=== PATIENT | female | born 1985 | race Caucasian/White ===

== ENCOUNTER 2018-02-04 19:46 | Emergency (ER) | payer OTHER ==
[2018-02-04 21:21] VITALS: BP 148/72; PULSE 120; RESP 18; TEMP 98.2
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
[2018-02-04] MEDS ORDERED: Acetaminophen-Codeine 300-30mg TAB PO STA (21:32)
== END 2018-02-04 22:08 | disposition home or self-care (01) ==
LOC: EC 19:46
DX: S02.5XXA Fracture of tooth (traumatic), initial encounter for closed fracture (principal); R00.0 Tachycardia, unspecified; F17.200 Nicotine dependence, unspecified, uncomplicated; Z86.14 Personal history of Methicillin resistant Staphylococcus aureus infection; Z91.048 Other nonmedicinal substance allergy status; V89.2XXA Person injured in unspecified motor-vehicle accident, traffic, initial encounter
CPT/HCPCS: 93005; 99283

== ENCOUNTER 2018-02-15 22:45 | Emergency (ER) | payer OTHER ==
[2018-02-15 22:53] VITALS: RESP 18
[2018-02-15 23:26] LABS: Appearance,Urine Cloudy (Clear); Bilirubin,Urine Negative (Negative); Blood,Urine Trace (Negative); Color,Urine Yellow; Glucose,Urine (UA) Negative (Negative); Ketones,Urine Negative (Negative); Leukocyte Esterase,Urine Negative (Negative); Mucus,Urine Rare /hpf; Nitrite,Urine Negative (Negative); PH, Urine 5.5 (5.0-8.0); Protein,Urine Negative (Negative); RBC,Urine 1 /hpf (0-5); Specific Gravity,Urine 1.031 (1.001-1.035); Squamous Epithelial Cell,Urine 9 /hpf (0-4); Urobilinogen,Urine <2.0 mg/dL (<2.0); WBC,Urine 2 /hpf (0-5)
[2018-02-15 23:37] LABS: Basophils # (A) 0.1 k/uL (0-0.2); Basophils % (A) 1 %; Eosinophils # (A) 0.3 k/uL (0-0.7); Eosinophils % (A) 4 %; HCT 41.7 % (34.0-46.0); HGB 13.9 gm/dL (11.4-16.0); Lymphocytes # (A) 4.1 k/uL (1.0-4.8); Lymphocytes % (A) 45 %; MCH 28.8 pg (25.0-35.0); MCHC 33.4 g/dL (31.0-37.0); MCV 86.2 fL (80.0-100.0); Mean Platelet Volume 6.4; Monocytes # (A) 0.6 k/uL (0-1.0); Monocytes % (A) 7 %; Neutrophils # (A) 3.7 k/uL (1.3-7.7); Neutrophils % (A) 41 %; Platelet Count 443 k/uL (150-450); RBC 4.84 m/uL (3.80-5.40); RDW 13.1 % (11.5-15.5); WBC 9.2 k/uL (3.8-10.6)
[2018-02-15 23:45] LABS: ALT 20 U/L (9-52); AST 34 U/L (14-36); Albumin 4.4 g/dL (3.5-5.0); Alkaline Phosphatase 63 U/L (38-126); Anion Gap 9 mmol/L; Blood Urea Nitrogen 17 mg/dL (7-17); Calcium 10.4 mg/dL (8.4-10.2); Carbon Dioxide 27 mmol/L (22-30); Chloride 105 mmol/L (98-107); Glucose 97 mg/dL (74-99); Potassium 4.8 mmol/L (3.5-5.1); Sodium 141 mmol/L (137-145); Total Bilirubin 0.3 mg/dL (0.2-1.3); Total Protein 7.7 g/dL (6.3-8.2)
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
[2018-02-16 00:21] VITALS: BP 133/80; PULSE 100; TEMP 98
== END 2018-02-16 00:21 | disposition home or self-care (01) ==
LOC: EC 22:45
DX: F41.9 Anxiety disorder, unspecified (principal); F17.200 Nicotine dependence, unspecified, uncomplicated; Z79.899 Other long term (current) drug therapy; Z91.048 Other nonmedicinal substance allergy status; Z86.14 Personal history of Methicillin resistant Staphylococcus aureus infection
CPT/HCPCS: 36415; 80053; 81001; 85025; 99284

== ENCOUNTER 2018-04-22 20:23 | Emergency (ER) | payer OTHER ==
[2018-04-22 20:31] VITALS: TEMP 97.9
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
[2018-04-22 21:54] VITALS: BP 132/78; PULSE 79; RESP 16
== END 2018-04-22 21:56 | disposition home or self-care (01) ==
LOC: EC 20:23
DX: R07.81 Pleurodynia (principal); M79.7 Fibromyalgia; F17.200 Nicotine dependence, unspecified, uncomplicated; Z86.14 Personal history of Methicillin resistant Staphylococcus aureus infection; Z79.899 Other long term (current) drug therapy; Z91.048 Other nonmedicinal substance allergy status
CPT/HCPCS: 99283

== ENCOUNTER 2021-06-06 20:35 | Emergency (ER) | payer OTHER ==
[2021-06-06 20:41] VITALS: BP 124/71; PULSE 91; RESP 16; TEMP 97.5
[2021-06-06] MEDS ORDERED: Acetaminophen-Codeine 300-30mg TAB PO STA (21:16)
--- NOTE | 2021-06-06 22:04 | XR ---
Result: Clinical History: Pain. Comparison: None available. Technique: 3 views of the right hand. Findings: Ring finger ring in place, limiting evaluation. No definite acute fracture or dislocation is seen. T he visualized osseous structures are in anatomic alignment. The joint spaces are preserved. There i s no definite radiopaque foreign body seen. Impression: No acute osseous abnormality.
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
[2021-06-06] MEDS ORDERED: traMADol 50 MG STARTER PACK 3 TAB BTL PO STA (22:28)
== END 2021-06-06 22:55 | disposition home or self-care (01) ==
LOC: EC 20:35
DX: S60.221A Contusion of right hand, initial encounter (principal); F17.200 Nicotine dependence, unspecified, uncomplicated; Z87.442 Personal history of urinary calculi; Z79.1 Long term (current) use of non-steroidal anti-inflammatories (NSAID); Z88.0 Allergy status to penicillin; W22.8XXA Striking against or struck by other objects, initial encounter
CPT/HCPCS: 99283

== ENCOUNTER 2021-07-23 01:49 | Emergency (ER) | payer OTHER ==
[2021-07-23 01:58] VITALS: TEMP 98
[2021-07-23] MEDS ORDERED: diphenhydrAMINE 50 MG/ML 1 ML VIAL IM STA (02:10)
[2021-07-23] MEDS ORDERED: FAMOTIDINE 20 MG TAB PO STA (02:10)
[2021-07-23] MEDS ORDERED: KETOROLAC 15 MG/ML 1 ML VIAL IM STA (02:10)
[2021-07-23] MEDS ORDERED: methylPREDNISolone SOD SUCCI 125 MG/2 ML VIAL IM ONE (02:10)
[2021-07-23] MEDS ORDERED: traMADol 50 MG STARTER PACK 3 TAB BTL PO STA (02:10)
--- NOTE | 2021-07-23 02:12 | ED ---
Skin/Abscess/FB HPI - General Chief complaint: Skin/Abscess/Foreign Body Stated complaint: Bug bite Time Seen by Provider: 07/23/21 02:02 Source: patient, family Mode of arrival: ambulatory Limitations: no limitations - History of Present Illness Initial comments: 35 year-old female patient presents to the emergency department for evaluation of bee sting to the left buttock. Patient states that the pain and swelling has been worsening throughout the evening. She did take benadryl early yesterday morning without relief. States that the redness and swelling is spreading which concerned her. She does report some wheezing but denies any shortness of breath. Denies lip, tongue, or throat swelling. Denies abdominal pain. Denies taking any other medication for her symptoms. States she hasn't stung by bee in the past without the significant reaction. - Related Data Home Medications Medication Instructions Recorded Confirmed Acetaminophen with Codeine 1 tab PO Q6HR PRN 02/15/18 04/22/18 [Tylenol w/codeine #4] Amoxicillin 500 mg PO TID 02/15/18 04/22/18 Gabapentin 600 mg PO TID 02/15/18 04/22/18 Previous Rx's Medication Instructions Recorded Ibuprofen 600 mg PO Q6HR #20 tablet 02/04/18 traMADol HCL [Ultram] 50 mg PO Q4-6H #10 tab 04/22/18 Famotidine [Pepcid] 20 mg PO DAILY #3 tablet 07/23/21 Naproxen [EC-Naprosyn] 500 mg PO BID PRN #30 tablet. 07/23/21 predniSONE 50 mg PO DAILY #3 tab 07/23/21 Allergies Allergy/AdvReac Type Severity Reaction Status Date / Time amoxicillin Allergy Anaphylaxis Verified 07/23/21 01:58 Penicillins Allergy Anaphylaxis Verified 07/23/21 01:58 adhesive AdvReac Rash/Hives Verified 07/23/21 01:58 Review of Systems ROS Statement: Those systems with pertinent positive or pertinent negative responses have been documented in the HPI. ROS Other: All systems not noted in ROS Statement are negative. Past Medical History Past Medical History: Fibromyalgia Additional Past Medical History / Comment(s): hx kidney stones, fibroid tumor History of Any Multi-Drug Resistant Organisms: None Reported, MRSA Date of last positivie culture/infection: 2010 MDRO Source:: pt unable to remember source Past Surgical History: Tubal Ligation Additional Past Surgical History / Comment(s): section 2013, lithotripsy Past Anesthesia/Blood Transfusion Reactions: No Reported Reaction Past Psychological History: Anxiety, Bipolar, Depression Smoking Status: Current every day smoker Past Alcohol Use History: Occasional Past Drug Use History: None Reported General Exam Limitations: no limitations General appearance: alert, in no apparent distress, other (This is a well- developed, well-nourished adult female patient in no acute distress. Vital signs upon presentation are temperature 98.2F, pulse 104, respirations 22, blood pressure 124/81, pulse ox 98% on room air.) Respiratory exam: Present: wheezes (Faint expiratory wheezing noted in the posterior lung stoner). Absent: respiratory distress, rales, rhonchi, stridor Cardiovascular Exam: Present: regular rate, normal rhythm, normal heart sounds. Absent: systolic murmur, diastolic murmur, rubs, gallop, clicks GI/Abdominal exam: Present: soft, normal bowel sounds. Absent: distended, tenderness, guarding, rebound, rigid Extremities exam: Present: full ROM, normal capillary refill, other (There is large area of erythema, warmth, and induration noted over the left lateral hip and right buttock.). Absent: tenderness, pedal edema, joint swelling, calf tenderness Neurological exam: Present: alert, oriented X3, CN II-XII intact Psychiatric exam: Present: normal affect, normal mood Skin exam: Present: warm, dry, intact, normal color. Absent: rash Course Vital Signs 07/23/21 01:53 Temperature 98 F Pulse Rate 104 H Respiratory 22 Rate Blood Pressure 124/81 O2 Sat by Pulse 98 Oximetry Medical Decision Making - Medical Decision Making 35-year-old female patient presents for evaluation of bee sting to the left buttock and hip. Physical examination did reveal large area of erythema, swelling, induration to the left lateral hip. Area is hot to touch. This is consistent with ALLERGIC reaction to bee sting. She'll be given IM doses of Solu-Medrol, Toradol, and Benadryl. She is given tramadol starter pack for pain. Instructed to apply cool compresses patient be discharged with prescription for Pepcid and prednisone. She is instructed take Benadryl every 6 hours. She is instructed to follow-up with her primary care physician for recheck in 1-2 days. Return parameters discussed in detail. She verbalizes understanding and agrees with this plan. My attending is Dr. Valdez. Disposition Clinical Impression: Bee sting Disposition: HOME SELF-CARE Condition: Good Instructions (If sedation given, give patient instructions): Insect Bite or Sting (ED) Additional Instructions: Apply cool compresses to the area. Take medications as directed. Take Benadryl every 6 hours as needed. Follow up with your primary care physician for recheck in 1-2 days. Return to the emergency department for any new, worsening, or concerning symptoms. Prescriptions: Naproxen [EC-Naprosyn] 500 mg PO BID PRN #30 tablet. PRN Reason: Pain Famotidine [Pepcid] 20 mg PO DAILY #3 tablet predniSONE 50 mg PO DAILY #3 tab Is patient prescribed a controlled substance at d/c from ED?: No Referrals: Nonstaff,Physician [Primary Care Provider] - 1-2 days Time of Disposition: 02:12
[2021-07-23 02:39] VITALS: BP 134/104; PULSE 106; RESP 18
== END 2021-07-23 02:30 | disposition home or self-care (01) ==
LOC: EC 01:49
DX: T63.441A Toxic effect of venom of bees, accidental (unintentional), initial encounter (principal); M79.7 Fibromyalgia; F31.9 Bipolar disorder, unspecified; F41.9 Anxiety disorder, unspecified; F17.200 Nicotine dependence, unspecified, uncomplicated; Z87.442 Personal history of urinary calculi
CPT/HCPCS: 99282; 96372 ×3; J1200; J2930; J1885

== ENCOUNTER 2022-05-14 20:54 | Emergency (ER) | payer OTHER ==
[2022-05-14 21:04] VITALS: PULSE 72; RESP 18; TEMP 98
--- NOTE | 2022-05-14 22:28 | XR ---
EXAMINATION TYPE: XR elbow complete RT DATE OF EXAM: 05/14/2022 COMPARISON: NONE HISTORY: Pain TECHNIQUE: 3 views FINDINGS: Elbow joint spaces are normal. I see no fracture nor dislocation. There is no sign of elbow joint effusion. IMPRESSION: Negative right elbow exam. No fracture.
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
[2022-05-14 22:41] VITALS: BP 141/74
== END 2022-05-14 22:41 | disposition other institution (70) ==
LOC: EC 20:54
DX: M25.521 Pain in right elbow (principal); M79.7 Fibromyalgia; F17.200 Nicotine dependence, unspecified, uncomplicated; Z88.1 Allergy status to other antibiotic agents; Z88.0 Allergy status to penicillin; Z91.09 Other allergy status, other than to drugs and biological substances; Z79.899 Other long term (current) drug therapy
CPT/HCPCS: 99283

== ENCOUNTER → 2025-05-15 | Outpatient (CLI) | payer OTHER ==
--- NOTE | 2025-05-15 08:50 | MM ---
Reason for Exam: Clinical finding. Baseline mammogram. Patient History: Menarche at age 13. First Full-Term at age 21. Premenopausal. Last menstrual period: 05/07/2025 Risk Values: Winifred 5 year model risk: 0.5%. NCI Lifetime model risk: 9.1%. Prior Study Comparison: Patient's first Mammogram. Tissue Density: The breasts are extremely dense, which lowers the sensitivity of mammography. Findings: Analyzed By CAD. Extensive rounded punctate and some amorphous calcifications throughout the upper outer quadrant right breast. Palpable marker is placed along the medial aspect of the right breast. In addition, there is a 9 mm nodule along the low axillary tail region of the right breast. Further ultrasound evaluation is recommended. No discrete abnormality seen on the left. Overall Assessment: Incomplete: need additional imaging evaluation, BI-RAD 0 Management: Diagnostic Breast Ultrasound of the right breast. [facility], , 05/15/2025 8:47 AM. Electronically signed and approved by: Karlee Velez M.D. Radiologist
== END | disposition home or self-care (01) ==
LOC: RADMAMWWP 08:03
PROVIDERS: ATTEND Family Medicine
DX: N63.10 Unspecified lump in the right breast, unspecified quadrant (principal); R92.343 Mammographic extreme density, bilateral breasts
CPT/HCPCS: 77066; 76641; G0279; 77062

== ENCOUNTER → 2025-05-27 | Day surgery (SDC) | payer OTHER ==
[2025-05-27] MEDS: ALPRAZolam 0.5 MG TAB PO PRN (10:25)
[2025-05-27 10:32] VITALS: RESP 16
[2025-05-27 12:15] VITALS: BP 132/81; PULSE 100; TEMP 98.1
--- NOTE | 2025-06-04 08:30 | MM ---
Risk Values: Winifred 5 year model risk: 0.5%. NCI Lifetime model risk: 9.1%. Prior Study Comparison: 05/15/2025 Bilateral MG 3D diag mammo w/cad [facility]. Pathology Description: Location: upper outer quadrant. Marker Left Behind. Specimen Radiograph. Approach: Lateral to Medial Needle Type: Eviva Cores: 7 Skin Nicks: 1 Gauge: 9 The patient was first placed in the LMO position to attempt visualization of the far posterior asymmetric density which did not appear to persist on magnification views. No persisting abnormality is seen here on this targeted in compression view. Probably relates to superimposition shadow. We subsequently removed to targeting the upper outer quadrant left breast microcalcifications covering a region of approximately 4 cm. The procedure of stereotactic guided core biopsy was explained to the patient. Benefits, alternatives, and risks were discussed. An informed consent was then obtained. The [facility] pathway for biopsy was chosen. Shortness pathway was a lateral approach. A vacuum assisted biopsy gun was used to obtain multiple core samples. The patient tolerated the procedure well without any immediate complication. The patient was kept in the radiology department for short stay after the procedure and then discharged home in stable condition. Targeted calcifications are identified in specimen mammogram. Patient was taken to a dedicated mammography suite for post procedure clip placement verification. Post biopsy mammogram shows the clip to appear in satisfactory position relative to the targeted area of upper outer quadrant calcifications on the preprocedure images. Impression: SUCCESSFUL, UNCOMPLICATED STEREOTACTIC GUIDED CORE BIOPSY OF UPPER OUTER QUADRANT RIGHT BREAST MICROCALCIFICATIONS. EVEN IF BENIGN RESULTS, RECOMMEND REFERRAL TO A BREAST SURGEON THE CALCIFICATIONS seem to be associated with a palpable lump. Initial targeting via an LMO position did not show any persisting asymmetric density far posteriorly. This density on the previous MLO view can be reassessed with a 6 month follow-up. Pathology Results: Result: Benign, Fibroadenoma. Pathology and radiology were reviewed. Findings are concordant. RIGHT BREAST, CORE BIOPSY: Features compatible with sclerotic fibroadenoma having calcification and proliferative fibrocystic change with columnar cell change and sclerosing adenosis. Overall Assessment: Benign Management: Diagnostic Mammogram of the right breast in 6 months. Electronically signed and approved by: Karlee Velez M.D. Radiologist
== END ==
LOC: RADMAMWWP 10:06
PROVIDERS: ATTEND Family Medicine
DX: R92.8 Other abnormal and inconclusive findings on diagnostic imaging of breast (principal)
CPT/HCPCS: 88305; 19081; A4648; J2003